=== PATIENT | female | born 1995 | race Caucasian/White ===

== ENCOUNTER 2020-06-01 16:45 | Emergency (ER) | payer OTHER ==
[~2020-06-01 16:45] MED LIST: COLACE 100MG C100 MG PO; IBUPROFEN600 MG PO; LODINE CAP 300300 MG PO; NORCO 10-325 T1 EACH PO; TESSALON PERLE100 MG PO; VENTOLIN HFA 66.7 GM INH
[2020-06-01] MEDS ORDERED: AMOXICILLIN875 MG PO (17:04)
== END 2020-06-01 17:05 | disposition home or self-care (01) ==
LOC: ER1 16:45
DX: H66.91 Otitis media, unspecified, right ear (principal); Z88.1 Allergy status to other antibiotic agents
CPT/HCPCS: 99282

== ENCOUNTER 2021-10-10 12:30 | Outpatient (CLI) | payer OTHER ==
[~2021-10-10 12:30] MED LIST changes: +AMOXICILLIN875 MG PO
== END 2021-10-10 14:48 | disposition home or self-care (01) ==
LOC: GENOP 12:30
DX: O99.891 Other specified diseases and conditions complicating pregnancy (principal); M54.50 Low back pain, unspecified; R10.10 Upper abdominal pain, unspecified; O26.853 Spotting complicating pregnancy, third trimester; Z3A.31 31 weeks gestation of pregnancy
CPT/HCPCS: 81001; 83518; G0463